=== PATIENT | female | born 1955 | race Caucasian/White ===

== ENCOUNTER 2018-10-04 14:54 | Inpatient (IN) ==
[2018-10-04 15:57] LABS: BASOPHILS # (AUTO) 0.1 X10^3/uL (0.0-0.1); BASOPHILS % (AUTO) 0.8 % (0.2-1.0); EOSINOPHILS # (AUTO) 0.6 x10^3/uL (0.0-0.2); EOSINOPHILS % (AUTO) 5.2 % (0.9-2.9); HEMATOCRIT 39.1 % (36.0-47.0); HEMOGLOBIN 13.2 g/dL (12.0-16.0); LYMPHOCYTES # (AUTO) 1.3 X10^3/uL (1.3-2.9); LYMPHOCYTES % (AUTO) 11.7 % (21.0-51.0); MEAN CORPUSCULAR HEMOGLOBIN 27.6 pg (27.0-34.0); MEAN CORPUSCULAR HGB CONC 33.8 g/dL (33.0-35.0); MEAN CORPUSCULAR VOLUME 81.9 fL (80.0-100.0); MEAN PLATELET VOLUME 8.4 fL (7.4-11.0); MONOCYTES # (AUTO) 0.9 x10^3/uL (0.3-0.8); MONOCYTES % (AUTO) 8.5 % (0.0-13.0); NEUTROPHILS # (AUTO) 8.2 x10^3/uL (2.2-4.8); NEUTROPHILS % (AUTO) 73.8 % (42.0-75.0); PLATELET COUNT 398 X10^3/uL (150.0-450.0); RED BLOOD COUNT 4.77 X10^6/uL (3.5-5.4); RED CELL DISTRIBUTION WIDTH 14.8 % (11.6-16.5); WHITE BLOOD COUNT 11.1 X10^3/uL (3.6-10.0)
[2018-10-04 16:19] LABS: ALANINE AMINOTRANSFERASE 61 Units/L (12-78); ALBUMIN 3.1 g/dL (3.4-5.0); ALKALINE PHOSPHATASE 268 Units/L (46-116); ASPARTATE AMINO TRANSFERASE 55 Units/L (15-37); BLOOD UREA NITROGEN 31 mg/dL (7-18); CALCIUM 10.1 mg/dL (8.5-10.1); CARBON DIOXIDE 28.1 mmol/L (21-32); CHLORIDE 94 mmol/L (98-107); COR CA(FOR HYPOALB) 10.8 mg/dL (8.5-10.1); CREATININE 1.84 mg/dL (0.55-1.02); SODIUM 133 mmol/L (136-145); TOTAL PROTEIN 8.5 g/dL (6.4-8.2); eGFR NON BLACK RACES 30 (>60)
[2018-10-04] MEDS: PROTONIX INJ 40 MG VIAL IVP SCH (16:52)
[2018-10-04] MEDS: D5 1/2 NS 1000 ML 1,000 ML IV SCH ×2 (16:52→21:47)
[2018-10-04] MEDS: ZOFRAN INJ 4 MG VIAL IVP PRN ×2 (16:52→21:51)
[2018-10-04] MEDS: DILAUDID INJ IVP PRN ×2 (16:52→20:17)
[2018-10-04] MEDS: ZOSYN VIAL 3.375 GRAMS 3.375 G in NS 100 ML IV + SPIKE MINIBAG* 100 ML IV SCH ×2 (16:52→21:46)
--- NOTE | 2018-10-04 20:22 | CT ---
CT abdomen and pelvis without contrast Indication: Severe abdominal pain. History of laparoscopic cholecystectomy 1 week prior. Comparison: 09/13/2018 Technique: Helical images through the abdomen and pelvis after oral contrast only. Coronal and sagittal reformats provided. Findings: Limited images through the lower chest shows trace right effusion. Heart size is slightly prominent. Review of bone windows shows spine and pelvis DJD. Abdomen: There is gas along the port sites in the right upper quadrant subcutaneous fat. Clips are seen at the umbilicus. There is fluid around the liver, tracking in the right pericolic gutter, minimally in the left pericolic gutter, around the spleen and collecting in the pelvis. The previously seen acutely inflamed distal descending/proximal sigmoid colon inflammatory process has improved. The kidneys show no stone or hydronephrosis. The adrenal glands, pancreas, stomach and small bowel are normal. Oral contrast enters the colon without obstruction. Colonic diverticulosis is noted, with improvement in the previous inflammatory process. Liver is normal. Common bile duct is not appear to be dilated. Cholecystectomy clips noted. Vasculature is free of plaque. Pelvis: The urinary bladder and rectum are normal. Uterus and adnexa show no acute abnormality. Impression: 1. Perihepatic fluid, fluid throughout the peritoneum and collecting in the pelvis. Lack of contrast limits sensitivity but this does not appear markedly organized at this time. Developing peritonitis is possible. Developing abscess cannot be excluded.. Bile leak is not entirely excluded as an etiology of the fluid. 2. Previously seen colonic inflammation has improved. However, acute diverticulitis as a source of the peritoneal fluid/peritonitis is possible as well. 3. Prominent heart size, trace right pleural fluid, spine degenerative change other findings as above. THE AVAILABILITY OF THE REPORT AND FINDINGS WERE COMMUNICATED TO Dr. Nunez the by Dr. Roman: 10/04/2018 Time called 8:20 p.m. Reported By:
[2018-10-04 20:37] LABS: BILIRUBIN,URINE 1+ (NEGATIVE); BLOOD/HEMOGLOBIN,URINE 5+ (NEGATIVE); GLUCOSE, URINE 1+ (NEGATIVE); KETONES,URINE NEGATIVE (NEGATIVE); LEUKOCYTE ESTERASE ,URINE 1+ (NEGATIVE); NITRITES,URINE NEGATIVE (NEGATIVE); PROTEIN,URINE 4+ (NEGATIVE); UROBILINOGEN,URINE NORMAL (NORMAL)
[2018-10-04 20:42] LABS: AMORPHOUS SEDIMENT,UR 2+ /HPF (NEGATIVE); APPEARANCE,URINE HAZY (CLEAR); BACTERIA,URINE 2+ /HPF (NEGATIVE); COLOR,URINE DARK YELLOW (YELLOW); HYALINE CASTS, URINE FEW /LPF (NEGATIVE); RBC,URINE 30-50 /HPF (NONE SEEN); SQUAMOUS EPITHELIAL CELL,UR MODERATE /HPF (NEGATIVE)
[2018-10-05] MEDS: DILAUDID INJ IVP PRN ×3 (00:50→15:05)
[2018-10-05] MEDS: D5 1/2 NS 1000 ML 1,000 ML IV SCH ×3 (01:48→18:18)
[2018-10-05] MEDS: ZOSYN VIAL 3.375 GRAMS 3.375 G in NS 100 ML IV + SPIKE MINIBAG* 100 ML IV SCH ×3 (05:20→21:20)
[2018-10-05 06:06] LABS: BASOPHILS # (AUTO) 0.1 X10^3/uL (0.0-0.1); BASOPHILS % (AUTO) 0.9 % (0.2-1.0); EOSINOPHILS # (AUTO) 0.7 x10^3/uL (0.0-0.2); EOSINOPHILS % (AUTO) 9.2 % (0.9-2.9); HEMOGLOBIN 11.3 g/dL (12.0-16.0); LYMPHOCYTES # (AUTO) 1.3 X10^3/uL (1.3-2.9); LYMPHOCYTES % (AUTO) 16.2 % (21.0-51.0); MEAN CORPUSCULAR HEMOGLOBIN 27.8 pg (27.0-34.0); MEAN CORPUSCULAR HGB CONC 34.1 g/dL (33.0-35.0); MEAN CORPUSCULAR VOLUME 81.6 fL (80.0-100.0); MEAN PLATELET VOLUME 8.2 fL (7.4-11.0); MONOCYTES # (AUTO) 0.9 x10^3/uL (0.3-0.8); MONOCYTES % (AUTO) 11.3 % (0.0-13.0); NEUTROPHILS # (AUTO) 4.9 x10^3/uL (2.2-4.8); NEUTROPHILS % (AUTO) 62.4 % (42.0-75.0); PLATELET COUNT 295 X10^3/uL (150.0-450.0); RED BLOOD COUNT 4.05 X10^6/uL (3.5-5.4); RED CELL DISTRIBUTION WIDTH 14.8 % (11.6-16.5); WHITE BLOOD COUNT 7.9 X10^3/uL (3.6-10.0)
[2018-10-05 06:07] LABS: ALBUMIN 2.4 g/dL (3.4-5.0); CARBON DIOXIDE 30.1 mmol/L (21-32); COR CA(FOR HYPOALB) 10.3 mg/dL (8.5-10.1); CREATININE 1.71 mg/dL (0.55-1.02); TOTAL PROTEIN 6.8 g/dL (6.4-8.2)
[2018-10-05] MEDS: PROTONIX INJ 40 MG VIAL IVP SCH (08:06)
[2018-10-05 10:12] VITALS: BMI 31.8
--- NOTE | 2018-10-05 16:48 | DR.PROGNOT ---
Hospital Progress Notes - Progress Note for Day of: Progress Note Date: 10/05/18 - Chief Complaint Chief Complaint: abdominal pain is less today . more to LLQ and RUQ today . no nausea or vomting .afebrile. elevated Alk phos and Bilirubin . dehydration is better , still elevated BUN,Creatinine - Past Medical Family Social History Past Med/Fam/Surg Hx: No changes since H&P Allergies: Allergies No Known Drug Allergies Allergy (Verified 09/13/18 09:56) - Review Of Systems ROS: No change since H&P - Vital Signs Vital Signs: Temperature 98.2 F Pulse Rate [Left Brachial] 68 Pulse Rate [Right Brachial] 85 Respiratory Rate 20 Blood Pressure [Left Arm] 143/84 Blood Pressure [Right Arm] 181/88 Blood Pressure 158/77 O2 Sat by Pulse Oximetry 96 - Physical Exam Oriented: Normal Cardiovascular: Normal : Normal GI:Auscultation: Decreased GI:Palpation: Normal, Other (nahun in place , no infection) GI: Tenderness: Diffuse (soft abdomen , with generalized tenderness as above , no rebound or rigidity , ), RUQ, LLQ Speech Pattern: Clear, Appropriate - Laboratory and Diagnostics Result Diagrams: 10/05/18 05:31 10/05/18 05:31 Labs: Laboratory WBC 7.9 X10^3/uL (3.6-10.0) 10/05/18 05:31 RBC 4.05 X10^6/uL (3.5-5.4) 10/05/18 05:31 Hgb 11.3 g/dL (12.0-16.0) L 10/05/18 05:31 Hct 33.0 % (36.0-47.0) L 10/05/18 05:31 MCV 81.6 fL (80.0-100.0) 10/05/18 05:31 MCH 27.8 pg (27.0-34.0) 10/05/18 05:31 MCHC 34.1 g/dL (33.0-35.0) 10/05/18 05:31 RDW 14.8 % (11.6-16.5) 10/05/18 05:31 Plt Count 295 X10^3/uL (150.0-450.0) 10/05/18 05:31 MPV 8.2 fL (7.4-11.0) 10/05/18 05:31 Neut % (Auto) 62.4 % (42.0-75.0) 10/05/18 05:31 Lymph % (Auto) 16.2 % (21.0-51.0) L 10/05/18 05:31 [place] % (Auto) 11.3 % (0.0-13.0) 10/05/18 05:31 Eos % (Auto) 9.2 % (0.9-2.9) H 10/05/18 05:31 Baso % (Auto) 0.9 % (0.2-1.0) 10/05/18 05:31 Neut # (Auto) 4.9 x10^3/uL (2.2-4.8) H 10/05/18 05:31 Lymph # (Auto) 1.3 X10^3/uL (1.3-2.9) 10/05/18 05:31 [place] # (Auto) 0.9 x10^3/uL (0.3-0.8) H 10/05/18 05:31 Eos # (Auto) 0.7 x10^3/uL (0.0-0.2) H 10/05/18 05:31 Baso # (Auto) 0.1 X10^3/uL (0.0-0.1) 10/05/18 05:31 Absolute Nucleated RBC 0.0 /100WBC 10/05/18 05:31 Sodium 134 mmol/L (136-145) L 10/05/18 05:31 Corrected Sodium 134 mmol/L (136-145) L 10/05/18 05:31 Potassium 3.6 mmol/L (3.5-5.1) 10/05/18 05:31 Chloride 96 mmol/L (98-107) L 10/05/18 05:31 Carbon Dioxide 30.1 mmol/L (21-32) 10/05/18 05:31 BUN 27 mg/dL (7-18) H 10/05/18 05:31 Creatinine 1.71 mg/dL (0.55-1.02) H 10/05/18 05:31 Est GFR (MDRD) Af Amer 39 (>60) L 10/05/18 05:31 Est GFR (MDRD) Non-Af 32 (>60) L 10/05/18 05:31 Glucose 114 mg/dL (65-99) H 10/05/18 05:31 Calcium 9.0 mg/dL (8.5-10.1) 10/05/18 05:31 Corrected Calcium 10.3 mg/dL (8.5-10.1) H 10/05/18 05:31 Total Bilirubin 1.50 mg/dL (0.2-1.0) H 10/05/18 05:31 AST 59 Units/L (15-37) H 10/05/18 05:31 ALT 67 Units/L (12-78) 10/05/18 05:31 Alkaline Phosphatase 249 Units/L (46-116) H 10/05/18 05:31 Total Protein 6.8 g/dL (6.4-8.2) 10/05/18 05:31 Albumin 2.4 g/dL (3.4-5.0) L 10/05/18 05:31 Globulin 4.4 g/dL (2.5-4.5) 10/05/18 05:31 Albumin/Globulin Ratio 0.5 Ratio (1.1-2.1) L 10/05/18 05:31 Specimen Type Clean catch urine 10/04/18 20:10 Urine Color Dark yellow (YELLOW) 10/04/18 20:10 Urine Appearance Hazy (CLEAR) 10/04/18 20:10 Urine pH 5.0 (5.0 - 8.0) 10/04/18 20:10 Ur Specific [place] 1.020 (1.000-1.030) 10/04/18 20:10 Urine Protein 4+ (NEGATIVE) 10/04/18 20:10 Urine Glucose (UA) 1+ (NEGATIVE) 10/04/18 20:10 Urine Ketones Negative (NEGATIVE) 10/04/18 20:10 Urine Occult Blood 5+ (NEGATIVE) 10/04/18 20:10 Urine Nitrite Negative (NEGATIVE) 10/04/18 20:10 Urine Bilirubin 1+ (NEGATIVE) 10/04/18 20:10 Urine Urobilinogen Normal (NORMAL) 10/04/18 20:10 Ur Leukocyte Esterase 1+ (NEGATIVE) 10/04/18 20:10 Urine RBC 30-50 /HPF (NONE SEEN) 10/04/18 20:10 Urine WBC 3-5 /HPF (NONE SEEN) 10/04/18 20:10 Ur Squamous Epith Cells Moderate /HPF (NEGATIVE) 10/04/18 20:10 Amorphous Sediment 2+ /HPF (NEGATIVE) 10/04/18 20:10 Urine Bacteria 2+ /HPF (NEGATIVE) 10/04/18 20:10 Hyaline Casts Few /LPF (NEGATIVE) 10/04/18 20:10 Ur Culture Indicated? No/not indicated 10/04/18 20:10 - Assessment and Plan 1: subsiding diverticulitis , on IV ATB 2: moderate peritonitis with fluid collection , PO Lap Justine . on IV ATB , to observe , 3: dehydration , improving with IVF. 4: possible retyained stone in the CBD . to repeat lab work in the future ,may need MRCP and ERCP in the future .
[2018-10-05 17:39] LABS: ALBUMIN 2.5 g/dL (3.4-5.0); CALCIUM 9.1 mg/dL (8.5-10.1); CARBON DIOXIDE 26.9 mmol/L (21-32); COR CA(FOR HYPOALB) 10.3 mg/dL (8.5-10.1); CREATININE 1.66 mg/dL (0.55-1.02); TOTAL PROTEIN 7.2 g/dL (6.4-8.2)
[2018-10-06] MEDS: D5 1/2 NS 1000 ML 1,000 ML IV SCH ×4 (00:34→13:38)
[2018-10-06] MEDS: ZOSYN VIAL 3.375 GRAMS 3.375 G in NS 100 ML IV + SPIKE MINIBAG* 100 ML IV SCH ×3 (05:30→21:45)
[2018-10-06 06:12] LABS: BASOPHILS # (AUTO) 0.1 X10^3/uL (0.0-0.1); BASOPHILS % (AUTO) 1.1 % (0.2-1.0); EOSINOPHILS # (AUTO) 0.7 x10^3/uL (0.0-0.2); EOSINOPHILS % (AUTO) 9.8 % (0.9-2.9); HEMATOCRIT 30.1 % (36.0-47.0); HEMOGLOBIN 10.4 g/dL (12.0-16.0); LYMPHOCYTES # (AUTO) 1.2 X10^3/uL (1.3-2.9); LYMPHOCYTES % (AUTO) 16.4 % (21.0-51.0); MEAN CORPUSCULAR HEMOGLOBIN 27.9 pg (27.0-34.0); MEAN CORPUSCULAR HGB CONC 34.5 g/dL (33.0-35.0); MEAN CORPUSCULAR VOLUME 80.8 fL (80.0-100.0); MEAN PLATELET VOLUME 8.6 fL (7.4-11.0); MONOCYTES # (AUTO) 0.8 x10^3/uL (0.3-0.8); MONOCYTES % (AUTO) 11.7 % (0.0-13.0); NEUTROPHILS # (AUTO) 4.4 x10^3/uL (2.2-4.8); PLATELET COUNT 267 X10^3/uL (150.0-450.0); RED BLOOD COUNT 3.73 X10^6/uL (3.5-5.4); RED CELL DISTRIBUTION WIDTH 14.7 % (11.6-16.5); WHITE BLOOD COUNT 7.3 X10^3/uL (3.6-10.0)
[2018-10-06 06:28] LABS: ALBUMIN 2.1 g/dL (3.4-5.0); CALCIUM 8.7 mg/dL (8.5-10.1); CARBON DIOXIDE 26.3 mmol/L (21-32); COR CA(FOR HYPOALB) 10.2 mg/dL (8.5-10.1); CREATININE 1.56 mg/dL (0.55-1.02); TOTAL PROTEIN 6.3 g/dL (6.4-8.2)
[2018-10-06] MEDS: PROTONIX INJ 40 MG VIAL IVP SCH (08:33)
[2018-10-06] MEDS ORDERED: DULCOLAX SUPPOSITORY 10 MG RECTAL ONE ×2 (08:40→11:01)
--- NOTE | 2018-10-06 14:25 | DR.PROGNOT ---
Hospital Progress Notes - Progress Note for Day of: Progress Note Date: 10/06/18 - Chief Complaint Chief Complaint: hand an episode of severe abdominal and back pain last night, was associated with chills and low grade fever 100.2. no pain this am , no nausea or vomiting . still constipated since her surgery a week ago . CBC normal . Bilirubin 1.10.. Alk PH 261 - Past Medical Family Social History Past Med/Fam/Surg Hx: No changes since H&P Allergies: Allergies No Known Drug Allergies Allergy (Verified 09/13/18 09:56) - Review Of Systems ROS: No change since H&P - Vital Signs Vital Signs: Temperature 98.1 F Pulse Rate [Left Brachial] 75 Pulse Rate [Right Brachial] 85 Respiratory Rate 20 Blood Pressure [Left Arm] 136/80 Blood Pressure [Right Arm] 181/88 Blood Pressure 158/77 O2 Sat by Pulse Oximetry 96 - Physical Exam Oriented: Normal Cardiovascular: Normal : Normal GI:Auscultation: Decreased GI:Palpation: Normal, Other (nahun in place , no infection) GI: Tenderness: Diffuse (soft abdomen , with generalized tenderness as above , no rebound or rigidity , ), RUQ, LLQ Speech Pattern: Clear, Appropriate - Laboratory and Diagnostics Result Diagrams: 10/06/18 04:11 10/06/18 04:11 Labs: Laboratory WBC 7.3 X10^3/uL (3.6-10.0) 10/06/18 04:11 RBC 3.73 X10^6/uL (3.5-5.4) 10/06/18 04:11 Hgb 10.4 g/dL (12.0-16.0) L 10/06/18 04:11 Hct 30.1 % (36.0-47.0) L 10/06/18 04:11 MCV 80.8 fL (80.0-100.0) 10/06/18 04:11 MCH 27.9 pg (27.0-34.0) 10/06/18 04:11 MCHC 34.5 g/dL (33.0-35.0) 10/06/18 04:11 RDW 14.7 % (11.6-16.5) 10/06/18 04:11 Plt Count 267 X10^3/uL (150.0-450.0) 10/06/18 04:11 MPV 8.6 fL (7.4-11.0) 10/06/18 04:11 Neut % (Auto) 61.0 % (42.0-75.0) 10/06/18 04:11 Lymph % (Auto) 16.4 % (21.0-51.0) L 10/06/18 04:11 [place] % (Auto) 11.7 % (0.0-13.0) 10/06/18 04:11 Eos % (Auto) 9.8 % (0.9-2.9) H 10/06/18 04:11 Baso % (Auto) 1.1 % (0.2-1.0) H 10/06/18 04:11 Neut # (Auto) 4.4 x10^3/uL (2.2-4.8) 10/06/18 04:11 Lymph # (Auto) 1.2 X10^3/uL (1.3-2.9) L 10/06/18 04:11 [place] # (Auto) 0.8 x10^3/uL (0.3-0.8) 10/06/18 04:11 Eos # (Auto) 0.7 x10^3/uL (0.0-0.2) H 10/06/18 04:11 Baso # (Auto) 0.1 X10^3/uL (0.0-0.1) 10/06/18 04:11 Absolute Nucleated RBC 0.1 /100WBC 10/06/18 04:11 Sodium 137 mmol/L (136-145) 10/06/18 04:11 Corrected Sodium 137 mmol/L (136-145) 10/06/18 04:11 Potassium 3.6 mmol/L (3.5-5.1) 10/06/18 04:11 Chloride 101 mmol/L (98-107) 10/06/18 04:11 Carbon Dioxide 26.3 mmol/L (21-32) 10/06/18 04:11 BUN 23 mg/dL (7-18) H 10/06/18 04:11 Creatinine 1.56 mg/dL (0.55-1.02) H 10/06/18 04:11 Est GFR (MDRD) Af Amer 43 (>60) L 10/06/18 04:11 Est GFR (MDRD) Non-Af 36 (>60) L 10/06/18 04:11 Glucose 118 mg/dL (65-99) H 10/06/18 04:11 Calcium 8.7 mg/dL (8.5-10.1) 10/06/18 04:11 Corrected Calcium 10.2 mg/dL (8.5-10.1) H 10/06/18 04:11 Total Bilirubin 1.10 mg/dL (0.2-1.0) H 10/06/18 04:11 AST 63 Units/L (15-37) H 10/06/18 04:11 ALT 77 Units/L (12-78) 10/06/18 04:11 Alkaline Phosphatase 273 Units/L (46-116) H 10/06/18 04:11 Total Protein 6.3 g/dL (6.4-8.2) L 10/06/18 04:11 Albumin 2.1 g/dL (3.4-5.0) L 10/06/18 04:11 Globulin 4.2 g/dL (2.5-4.5) 10/06/18 04:11 Albumin/Globulin Ratio 0.5 Ratio (1.1-2.1) L 10/06/18 04:11 Specimen Type Clean catch urine 10/04/18 20:10 Urine Color Dark yellow (YELLOW) 10/04/18 20:10 Urine Appearance Hazy (CLEAR) 10/04/18 20:10 Urine pH 5.0 (5.0 - 8.0) 10/04/18 20:10 Ur Specific [place] 1.020 (1.000-1.030) 10/04/18 20:10 Urine Protein 4+ (NEGATIVE) 10/04/18 20:10 Urine Glucose (UA) 1+ (NEGATIVE) 10/04/18 20:10 Urine Ketones Negative (NEGATIVE) 10/04/18 20:10 Urine Occult Blood 5+ (NEGATIVE) 10/04/18 20:10 Urine Nitrite Negative (NEGATIVE) 10/04/18 20:10 Urine Bilirubin 1+ (NEGATIVE) 10/04/18 20:10 Urine Urobilinogen Normal (NORMAL) 10/04/18 20:10 Ur Leukocyte Esterase 1+ (NEGATIVE) 10/04/18 20:10 Urine RBC 30-50 /HPF (NONE SEEN) 10/04/18 20:10 Urine WBC 3-5 /HPF (NONE SEEN) 10/04/18 20:10 Ur Squamous Epith Cells Moderate /HPF (NEGATIVE) 10/04/18 20:10 Amorphous Sediment 2+ /HPF (NEGATIVE) 10/04/18 20:10 Urine Bacteria 2+ /HPF (NEGATIVE) 10/04/18 20:10 Hyaline Casts Few /LPF (NEGATIVE) 10/04/18 20:10 Ur Culture Indicated? No/not indicated 10/04/18 20:10 - Assessment and Plan 1: subsiding diverticulitis , on IV ATB 2: moderate peritonitis with fluid collection , PO Lap Justine . on IV ATB , to observe , 3: dehydration , improving with IVF. 4: possible retained CBD stone with mild cholangitis . to repeat lab work in the future ,may need MRCP and ERCP in the future . 5: constipation most likely ileus related to the abdominal fluid and recent surgery . given SS enema this pm .
[2018-10-06] MEDS ORDERED: FLEET ENEMA ADULT PR ONE (14:30)
[2018-10-06] MEDS ORDERED: FLEET ENEMA ADULT ONE (14:48)
[2018-10-07 05:05] LABS: BASOPHILS # (AUTO) 0.1 X10^3/uL (0.0-0.1); BASOPHILS % (AUTO) 0.6 % (0.2-1.0); EOSINOPHILS # (AUTO) 0.4 x10^3/uL (0.0-0.2); EOSINOPHILS % (AUTO) 3.7 % (0.9-2.9); HEMATOCRIT 30.2 % (36.0-47.0); HEMOGLOBIN 10.2 g/dL (12.0-16.0); LYMPHOCYTES % (AUTO) 9.7 % (21.0-51.0); MEAN CORPUSCULAR HEMOGLOBIN 27.4 pg (27.0-34.0); MEAN CORPUSCULAR HGB CONC 33.8 g/dL (33.0-35.0); MEAN CORPUSCULAR VOLUME 81.1 fL (80.0-100.0); MEAN PLATELET VOLUME 8.4 fL (7.4-11.0); MONOCYTES # (AUTO) 0.9 x10^3/uL (0.3-0.8); MONOCYTES % (AUTO) 8.8 % (0.0-13.0); NEUTROPHILS # (AUTO) 8.2 x10^3/uL (2.2-4.8); NEUTROPHILS % (AUTO) 77.2 % (42.0-75.0); PLATELET COUNT 317 X10^3/uL (150.0-450.0); RED BLOOD COUNT 3.72 X10^6/uL (3.5-5.4); RED CELL DISTRIBUTION WIDTH 14.3 % (11.6-16.5); WHITE BLOOD COUNT 10.6 X10^3/uL (3.6-10.0)
[2018-10-07 05:15] LABS: ALBUMIN 2.2 g/dL (3.4-5.0); CALCIUM 8.6 mg/dL (8.5-10.1); CARBON DIOXIDE 25.3 mmol/L (21-32); CREATININE 1.45 mg/dL (0.55-1.02); TOTAL PROTEIN 6.5 g/dL (6.4-8.2)
[2018-10-07] MEDS ORDERED: K-DUR TAB 20 MEQ PO PRN (05:24)
[2018-10-07] MEDS ORDERED: POTASSIUM CHLORIDE LIQ 20 MEQ UDC PO PRN (05:24)
[2018-10-07] MEDS ORDERED: POTASSIUM CHL 60 MEQ/NS 0.45% 500 ML IV PRN (05:24)
[2018-10-07] MEDS ORDERED: POTASSIUM CHL 40 MEQ/NS 0.45% 500 ML IV PRN (05:24)
[2018-10-07] MEDS ORDERED: MICRO K EXTEN CAP 10 MEQ PO PRN (05:24)
[2018-10-07] MEDS ORDERED: KLOR-CON PO PRN (05:24)
[2018-10-07] MEDS ORDERED: K-RIDER 10 MEQ/NS 100 ML 10 MEQ/100 ML BAG IV PRN (05:24)
[2018-10-07] MEDS ORDERED: MAGNESIUM SULFATE 1 GRAM/100 mL PREMIX 1 GM/100 ML BAG IV PRN (05:24)
[2018-10-07] MEDS ORDERED: KLOR-CON PO ONE (05:30)
[2018-10-07] MEDS: D5 1/2 NS 1000 ML 1,000 ML IV SCH ×3 (05:45→08:26)
[2018-10-07] MEDS: ZOSYN VIAL 3.375 GRAMS 3.375 G in NS 100 ML IV + SPIKE MINIBAG* 100 ML IV SCH (05:46)
[2018-10-07] MEDS: PROTONIX INJ 40 MG VIAL IVP SCH (08:27)
[2018-10-07 09:17] VITALS: BP 138/65
== END 2018-10-07 11:45 | disposition home or self-care (01) | DRG 391 ==
LOC: MED/SURG → OBSVTOIN 15:23
PROVIDERS: ADMIT Surgery; ATTEND Surgery
DX: K57.92 Diverticulitis of intestine, part unspecified, without perforation or abscess without bleeding; K52.89 Other specified noninfective gastroenteritis and colitis; K65.8 Other peritonitis; R74.8 Abnormal levels of other serum enzymes; E86.0 Dehydration; K59.09 Other constipation; K91.86 Retained cholelithiasis following cholecystectomy; E87.1 Hypo-osmolality and hyponatremia; R10.84 Generalized abdominal pain; Z90.49 Acquired absence of other specified parts of digestive tract
CPT/HCPCS: 36415; 74176; 80053; 81001; 83735; 84132; 85025; A4222; C9113; J1170; J2405; J2543; J7050; S5010